=== PATIENT | female | born 1960 | race Caucasian/White ===

== ENCOUNTER 2016-09-23 18:16 | Emergency (ER) | payer OTHER ==
[2016-09-23 19:07] VITALS: BP 147/96
[2016-09-24 10:56] LABS: Calcium 9.6 mg/dL (8.6-10.3); EGFR African American 91.8 (>60); EGFR Non-African American 71.4 (>60)
--- NOTE | 2016-09-30 08:16 | UC ---
Poncho Ragsdale SooYoung, scribed for Jose Monroygideon MonaeDO on 09/23/16 at 2116 . Back Pain HPI - HPI Summary HPI Summary: A 56 y/o F presents to [facility] [place] with c/o acute flank pain onset past day. Associated sx: stronger urine odor. Denies fever and chills, n/v, abd pain, frequency. She took Advil this AM. Past PMHx: back pain, but she says today's sx do not feel the same. Secondary complaint: she's had a "funny smell" in her nose for past 6 weeks, describes the smell as toast. She used a netti pot with some relief. Pt takes turmeric and benji to alleviate general body pain. PCP is Dr. Foster in [place]. - History of Current Complaint Chief Complaint: UCBackPain Stated Complaint: BACK PAIN Time Seen by Provider: 09/23/16 20:53 Hx Obtained From: Patient ?: No Onset/Duration: Lasting Hours, Still Present Timing: Constant Severity Initially: Moderate Severity Currently: Moderate Pain Intensity: 4 Pain Scale Used: 0-10 Numeric Back Pain: Is Discrete @ - R flank/back Character: Sharp, Aching Aggravating: Nothing Alleviating: Nothing Associated Signs And Symptoms: Positive: Flank Pain. Negative: Swelling, Redness, Bruising, Fever, Weakness, Numbness, Tingling, Abdominal Pain, Bladder Incontinence, Bowel Incontinence - Risk Factors Cauda Equina Risk Factors: Negative - Allergies/Home Medications Allergies/Adverse Reactions: Allergies Allergy/AdvReac Type Severity Reaction Status Date / Time Codeine Allergy Severe GI Upset Verified 09/23/16 19:07 Latex Allergy Severe Rash Verified 09/23/16 19:07 Home Medications: Home Medications Calcium-Magnesium W/ Vitamin D [Calcium 600/Magnes... 200-100-33.3 mg-mg-Unit] 09/23/16 [History] Evening [place] Oil [Evening [place] Oil 500 mg] 09/23/16 [History] Glucosamine-Chondroitin [Glucosamine & Chondroitin 500-400 mg] 1 cap PO [History] Ibuprofen TAB* [Advil TAB*] 600 mg PO PRN 09/23/16 [History] Omeprazole CAP* [Prilosec CAP* 20 MG] 09/23/16 [History] Tumeric Kiron* 09/23/16 [History Confirmed 09/23/16] Zinc [Elite Zinc] 09/23/16 [History] PMH/Surg Hx/FS Hx/Imm Hx Previously Healthy: Yes Neurological History Of: Denies: Dementia - Surgical History Surgical History: Yes Surgery Procedure, Year, and Place: TONSILLECTOMY, UTERINE ABLATION, CHOLECYSTECTOMY - Family History Known Family History: Positive: Cardiac Disease - father, Diabetes - both parents - Social History Occupation: Employed Full-time Lives: With Family Alcohol Use: Daily Alcohol Amount: 1-2 GLASSES WINE Substance Use Type: None Smoking Status (MU): Never Smoked Tobacco Review of Systems Constitutional: Negative Skin: Negative Eyes: Negative ENT: Negative Respiratory: Negative Cardiovascular: Negative Gastrointestinal: Negative Genitourinary: Other - POS: STRONG URINE ODOR Motor: Negative Neurovascular: Negative Musculoskeletal: Other: - POS: flank pain Neurological: Negative Psychological: Negative All Other Systems Reviewed And Are Negative: Yes Physical Exam Triage Information Reviewed: Yes Appearance: Well-Appearing, No Pain Distress, Well-Nourished Vital Signs: Initial Vital Signs Temp 98.1 F 09/23/16 19:02 Pulse 83 09/23/16 19:02 Resp 16 09/23/16 19:02 BP 147/96 09/23/16 19:02 Pulse Ox 100 09/23/16 19:02 Vital Signs Reviewed: Yes Eyes: Positive: Conjunctiva Clear. Negative: Discharge ENT: Positive: Hearing grossly normal. Negative: Muffled/hoarse voice Neck exam: Normal Neck: Positive: Supple Respiratory: Positive: Lungs clear, Normal breath sounds, No respiratory distress, No accessory muscle use Cardiovascular: Positive: RRR, No Murmur Abdomen Description: Positive: Nontender, Soft. Negative: CVA Tenderness (R), CVA Tenderness (L), Distended, Guarding, McBurney's Point Tenderness Bowel Sounds: Positive: Present Musculoskeletal: Positive: Other: - Reflex and strength sensation intact bilaterally, perispinal spasm on R, psoas tenderness Neurological: Positive: Alert, Muscle Tone Normal Psychological: Positive: Age Appropriate Behavior Skin Exam: Normal, Other - warm, dry, nml color Back Pain Course/Dx - Differential Dx/Diagnosis Differential Diagnosis/HQI/PQRI: Renal Colic, Strain, Sprain Provider Diagnoses: flank pain Discharge - Discharge Plan Condition: Stable Disposition: HOME Prescriptions: Cyclobenzaprine TAB* [Flexeril TAB*] 10 mg PO TID PRN #30 tab PRN Reason: Pain Patient Education Materials: Flank Pain (ED) Referrals: Non Staff,Doctor [Primary Care Provider] - Additional Instructions: WE ARE DOING SOME BASIC LAB WORK AND A URINE CULTURE. YOU WILL BE CALLED IF WE FIND ANY ABNORMALITIES ALTERNATE HOT AND COLD ONE RIGHT AFTER THE OTHER FOR 10-20 MINUTES EACH. ICE PACKS: Apply ice packs frequently against the painful area. Many different schedules are recommended, such as "20 minutes on, 20 minutes off" or "one hour ice, two hours rest." If you need to work, you may need to go longer between ice treatments. You should plan to have the area ice packed AT LEAST one fourth of the time. The ice should be applied over the wrap, tape, or splint, or over a layer of cloth -- not directly against the skin. Some ice bags have a built-in cloth and can be put directly on the skin. WARM PACKS: Apply gentle heat (such as a heating pad or hot water bottle) for about 20 to 30 minutes about every two hours -- at least four times daily. Warmth and elevation will help you make a more rapid recovery, and will ease the pain considerably. Do not use HOT heat, and never apply heat for longer than 30 minutes. The continuous heat can invisibly damage skin and muscles -- even when no burn is seen on the surface. Damaged muscles can make you MORE sore. MUSCLE RELAXERS: Muscle relaxing medications are usually prescribed for acute muscle spasm or injury to the neck and back. They are often combined with antiinflammatory pain medication for increased relief. You may stop the muscle relaxer when the pain and stiffness have improved. Start the medication again if spasms recur. Muscle relaxers may cause drowsiness, especially with the first dose. Do not operate machinery or drive while under the effects of the medication. Most muscle relaxers last up to 24 hours. Do not combine the medication with alcohol. YOU WOULD LIKELY BENEFIT FROM OSTEOPATHIC TREATMENT. WE RECOMMEND THAT YOU FIND AN OSTEOPATHIC PHYSICIAN IN YOUR AREA WHO FOCUSES EXCLUSIVELY ON OSTEOPATHIC MANIPULATIVE MEDICINE WITH EXPERTISE IN MYOFACIAL, LYMPHATIC, VISCERAL AND INTEROSSEOUS WORK The documentation as recorded by the scribe, VanDeMark,SooYoung accurately reflects the service I personally performed and the decisions made by me, Kanika Monroy DO.
== END 2016-09-23 21:52 | disposition home or self-care (01) ==
LOC: UCEAST 18:16
DX: M54.5 Low back pain (principal); R82.99 Other abnormal findings in urine; Z90.49 Acquired absence of other specified parts of digestive tract
CPT/HCPCS: 36415; 80048; 81002; 87086; 99202; G0463